=== PATIENT | male | born 1960 | race Caucasian/White ===

== ENCOUNTER 2021-05-07 15:34 | Emergency (ER) | payer OTHER ==
[~2021-05-07] VITALS: Ht 185.4 cm; Wt 113.6 kg
[2021-05-07 15:40] VITALS: TEMP 98.4
[2021-05-07] MEDS ORDERED: NORCO 325 MG-51 TAB PO (18:05)
[2021-05-07 18:29] VITALS: BP 139/72; PULSE 65
== END 2021-05-07 18:30 | disposition home or self-care (01) ==
LOC: COL.ER 15:34
DX: S42.251A Displaced fracture of greater tuberosity of right humerus, initial encounter for closed fracture (principal); W11.XXXA Fall on and from ladder, initial encounter
CPT/HCPCS: J2704; J3010